=== PATIENT | male | born 2000 | race Caucasian/White ===

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

== ENCOUNTER 2018-03-12 15:16 | Emergency (ER) | payer SELFPAY ==
[~2018-03-12 15:16] MED LIST changes: +KEPPRA XR750 MG PO; -KEPPRA1000 MG PO
[2018-03-12 15:38] LABS: AMYLASE 21 IU/L (1-118)
[2018-03-12 15:46] LABS: LIPASE 12 U/L (1.0-51.0)
[2018-03-12] MEDS ORDERED: ROXICODONE5 MG PO (17:09)
[2018-03-14] MEDS ORDERED: HYDROCODON-ACE1 EAC7 PO (11:20)
[2018-03-14] MEDS ORDERED: OXAYDO5 MG PO (11:21)
== END 2018-03-12 17:48 | disposition home or self-care (01) ==
LOC: TRA 15:16
DX: S82.302A Unspecified fracture of lower end of left tibia, initial encounter for closed fracture (principal); S82.832A Other fracture of upper and lower end of left fibula, initial encounter for closed fracture; S93.05XA Dislocation of left ankle joint, initial encounter; V29.40XA Motorcycle driver injured in collision with unspecified motor vehicles in traffic accident, initial encounter; Y92.410 Unspecified street and highway as the place of occurrence of the external cause; R56.9 Unspecified convulsions
CPT/HCPCS: 70450; 71250; 72125; 72128; 72132; 73560; 73590; 73600; 73610; 74174; 75635; 82150; 83690; 99281; 99285

== ENCOUNTER 2018-03-20 10:40 | Day surgery (SDC) | payer OTHER ==
[~2018-03-20] VITALS: Ht 170.2 cm; Wt 68.0 kg
[~2018-03-20 10:40] MED LIST changes: +OXAYDO5 MG PO; +ROXICODONE5 MG PO
[2018-03-20 11:04] VITALS: BP 115/59
== END 2018-03-20 12:09 | disposition home or self-care (01) ==
LOC: SDC 10:40
DX: S82.852A Displaced trimalleolar fracture of left lower leg, initial encounter for closed fracture (principal); G40.409 Other generalized epilepsy and epileptic syndromes, not intractable, without status epilepticus; Z53.09 Procedure and treatment not carried out because of other contraindication
CPT/HCPCS: J0690; J2250; J3010

== ENCOUNTER 2018-03-22 12:53 | Day surgery (SDC) | payer OTHER ==
[~2018-03-22] VITALS: Ht 170.2 cm; Wt 68.1 kg
[2018-03-22 13:31] VITALS: BP 123/70
[2018-03-22 13:40] LABS: HEMOGLOBIN 13.4 G/DL (12.5-16.6); MCH 31.9 PG (29.0-34.0); MCHC 35.3 G/DL (30.0-36.0); MCV 90.5 FL (86-99); PLATELET COUNT 310 K/uL (156-360); RBC DIS.WIDTH-CV 11.6 % (11.8-14.6); RBC DIS.WIDTH-SD 38.4 % (39-53); WHITE BLOOD COUNT 6.7 K/uL (4.1-10.2)
[2018-03-22 18:30] VITALS: BP 169/83
[2018-03-22 19:37] VITALS: BP 144/92
[2018-03-22 19:51] VITALS: BP 154/91
[2018-03-22 20:30] VITALS: BP 139/85
== END 2018-03-22 20:48 | disposition home or self-care (01) ==
LOC: SDC 12:53
PROVIDERS: Orthopaedic Surgery
PROC: 0QSK04Z Reposition Left Fibula with Internal Fixation Device, Open Approach (ICD-10-PCS; principal; 2018-03-22)
PROC: 0QSH04Z Reposition Left Tibia with Internal Fixation Device, Open Approach (ICD-10-PCS; principal; 2018-03-22)
DX: S82.852A Displaced trimalleolar fracture of left lower leg, initial encounter for closed fracture (principal); G40.409 Other generalized epilepsy and epileptic syndromes, not intractable, without status epilepticus; V29.9XXA Motorcycle rider (driver) (passenger) injured in unspecified traffic accident, initial encounter; Y93.55 Activity, bike riding
CPT/HCPCS: 73600; 76000; 85027; C1713; J0131; J0690; J1100; J1170; J1885; J2250; J3010